=== PATIENT | female | born 1980 | race Caucasian/White ===

== ENCOUNTER 2017-03-03 08:33 | Emergency (ER) | payer MEDICAID ==
[~2017-03-03] VITALS: Ht 157.5 cm; Wt 81.0 kg
[~2017-03-03 08:33] MED LIST: DOCU-138 PO; IBUP-779 PO
[2017-03-03 10:20] VITALS: BP 140/82
[2017-03-03 10:46] LABS: CLARITY URINE CLEAR (CLEAR); COLOR URINE YELLOW (YELLOW); KETONES URINE NEGATIVE (NEGATIVE); LEUKOCYTE ESTERASE URINE NEGATIVE (NEGATIVE); NITRITE URINE NEGATIVE (NEGATIVE); OCCULT BLOOD URINE NEGATIVE (NEGATIVE); PROTEIN URINE NEGATIVE (NEGATIVE); SPECIFIC GRAVITY URINE 1.011 (1.005-1.030)
== END 2017-03-03 12:20 | disposition home or self-care (01) ==
LOC: ER 08:43
DX: R30.0 Dysuria (principal); R31.9 Hematuria, unspecified; R10.9 Unspecified abdominal pain; R82.99 Other abnormal findings in urine
CPT/HCPCS: 81003; 99283

== ENCOUNTER 2017-07-27 13:22 | Emergency (ER) | payer MEDICAID ==
[~2017-07-27] VITALS: Ht 144.8 cm; Wt 75.0 kg
[2017-07-27 16:10] VITALS: BP 105/72
== END 2017-07-27 16:31 | disposition home or self-care (01) ==
LOC: ER 13:22
DX: B97.89 Other viral agents as the cause of diseases classified elsewhere (principal); J02.8 Acute pharyngitis due to other specified organisms; R51 Headache; H92.01 Otalgia, right ear
CPT/HCPCS: 87070; 87430; 99284

== ENCOUNTER 2018-07-12 19:20 | Emergency (ER) | payer MEDICAID ==
[~2018-07-12] VITALS: Ht 154.9 cm; Wt 81.2 kg
[2018-07-12] MEDS ORDERED: NITROGLYCERIN 0.4MG TABLET SL SL PRN (20:45)
[2018-07-12] MEDS: ACETAMINOPHEN 325MG TABLET PO ONE (21:01)
[2018-07-12] MEDS: ASPIRIN 81MG TABLET PO ONE (21:01)
[2018-07-12 21:29] LABS: BASOPHILS % 0.6 % (0.0-2.0); EOSINOPHILS % 2.8 % (0.0-5.0); HEMATOCRIT. 40.1 % (36.0-48.0); HEMOGLOBIN. 13.5 g/dL (12.0-16.0); LYMPHOCYTES % 32.2 % (20.0-50.0); MEAN CORPUSCULAR HEMOGLOBIN 31.6 pg (28.0-32.0); MEAN CORPUSCULAR VOLUME 94.2 fL (81.0-99.0); MEAN PLATELET VOLUME 9.5 fl (7.4-10.4); MONOCYTES % 5.9 % (2.0-8.0); NEUTROPHILS % 58.5 % (40.0-76.0); PLATELET 276 x1000/uL (130-400); RED BLOOD CELL COUNT 4.26 mill/uL (4.2-5.4)
[2018-07-12 21:34] LABS: CHLORIDE 108 mEq/L (98-107)
[2018-07-12 21:43] LABS: HCG SCREEN NEGATIVE
[2018-07-13 02:06] VITALS: BP 102/64
== END 2018-07-13 02:08 | disposition home or self-care (01) ==
LOC: ER 23:50
DX: R07.2 Precordial pain (principal); R51 Headache; I10 Essential (primary) hypertension
CPT/HCPCS: 36415; 71045; 83880; 84484; 84703; 93005; 99284

== ENCOUNTER 2021-01-30 18:10 | Emergency (ER) | payer MEDICAID ==
[~2021-01-30] VITALS: Ht 154.9 cm; Wt 88.0 kg
[2021-01-30 18:14] VITALS: BP 134/98
== END 2021-01-30 20:46 | disposition left against medical advice (07) ==
LOC: ER 18:10
DX: Z53.21 Procedure and treatment not carried out due to patient leaving prior to being seen by health care provider (principal); R10.9 Unspecified abdominal pain
CPT/HCPCS: 93005